=== PATIENT | male | born 1955 | race Caucasian/White ===

== ENCOUNTER → 2017-07-14 | Outpatient (CLI) | payer BC ==
[~2017-07-14] MED LIST: ASPI-1471 PO; CEP500 PO; CINN500C12 PO; CIPR-212 PO; DOCU-416 PO; DOXA8TAB62 PO; EZET10TA41 PO; GINK1TAB2 PO; HYDR-317 PO; IBU600 PO; LEVO-85 PO; LISI2.5T60 PO; LOR5/325 PO; METXR500 PO; MULT-820 PO; OMEG-11 PO; PHEN200T32 PO; SIM10 PO; SITA100T9 PO; UBID10CA8 PO; [UNRECOGNIZED DRUG - CODE] PO; [UNRECOGNIZED DRUG - CODE] PO; [UNRECOGNIZED DRUG - CODE] PO
--- NOTE | 2017-07-14 12:44 | RADIOLOGY IMAGING REPORT ---
FACILITY: [facility] - [place] PATIENT NAME: Dov Swanson : 1955 MR: [id number] V: [id number] EXAM DATE: ORDERING PHYSICIAN: KAYLIN GILBERT TECHNOLOGIST: Location: [facility] Patient: Dov Swanson : 1955 Visit/Account:[id number] Date of Sevice: 07/14/2017 EXAMINATION: CT of the Paranasal Sinuses HISTORY: Deviated septum, allergic rhinitis TECHNIQUE: CT was performed through the paranasal sinuses without intravenous contrast administratio n. Coronal and sagittal reformatted images were generated. One of the following dose optimization techniques was utilized in the performance of this exam: autom ated exposure control; adjustment of the mA and/or kV according to patient size; or use of iterative reconstruction technique. Specific details can be referenced in the facility's radiology CT exam ope rational policy. COMPARISON: None. FINDINGS: Clear mastoid air cells and middle ear cavities. Mild left greater than right frontoethmoidal recess and left frontal sinus mucosal thickening. Otherwise clear sinuses. No nasal cavity polyp. Patent infundibula. Left johnny bullosa. Mild rightward nasal septum deviation. Normal temporomandibular joints. The visible extracranial and intracranial structures are normal. IMPRESSION: Mild left greater than right frontal ethmoidal recess and left frontal sinus mucosal thickening. No paranasal sinus fluid. Mild rightward nasal septum deviation. Left johnny bullosa. Report Dictated By: Teodoro Herndon MD at 07/14/2017 12:35 PM Report E-Signed By: Teodoro Herndon MD at 07/14/2017 12:39 PM WSN:[id number]
== END ==
LOC: CT 01:18
PROVIDERS: ATTEND Otolaryngology
DX: J34.2 Deviated nasal septum (principal); J01.10 Acute frontal sinusitis, unspecified; J32.2 Chronic ethmoidal sinusitis
CPT/HCPCS: 36415; 70486; 82785; 86003

== ENCOUNTER → 2017-08-24 | Outpatient (CLI) | payer BC ==
[2017-08-24 10:54] LABS: INR 0.95
--- NOTE | 2017-08-24 11:12 | EKG ---
[place] [facility] [place] NAME: BEULAH BACH : [id number] MR: [id number] V: [id number] EXAM DATE: ORDERING PHYSICIAN: HUMERA GILBERT TECHNOLOGIST: HAYDEE Dominguez Reason : PREOP-SPETUM Blood Pressure : / mmHG Vent. Rate : 075 BPM Atrial Rate : 075 BPM P-R Int : 184 ms QRS Dur : 086 ms QT Int : 384 ms P-R-T Axes : 068 031 044 degrees QTc Int : 428 ms Normal sinus rhythm Normal ECG When compared with ECG of 02-JUN-2014 08:22, No significant change was found Confirmed by JANNIE LIGHT ([id number]) on 08/24/2017 7:34:18 PM Referred By: OFELIA Confirmed By:JANNIE LIGHT
== END ==
LOC: LAB 09:39
PROVIDERS: ATTEND Otolaryngology
DX: Z01.818 Encounter for other preprocedural examination (principal); J34.2 Deviated nasal septum; J30.1 Allergic rhinitis due to pollen
CPT/HCPCS: 36415; 82040; 82247; 82310; 82374; 82435; 82565; 82947; 84075; 84132; 84155; 84295; 84450; 84460; 84520; 85027; 85610; 85730; 93005